=== PATIENT | male | born 1990 | race Caucasian/White ===

== ENCOUNTER 2022-01-23 08:58 | Emergency (ER) | payer MEDICARE, OTHER ==
[~2022-01-23] VITALS: Ht 180.3 cm; Wt 77.3 kg
[~2022-01-23 08:58] MED LIST: ACET500C4 PO
[2022-01-23] MEDS ORDERED: DEXT10TA4 PO (09:20)
[2022-01-23 11:04] LABS: COVID AG,FIA SOURCE NASAL SWAB
[2022-01-23 12:35] VITALS: BP 116/78
== END 2022-01-23 13:13 | disposition home or self-care (01) ==
LOC: EMS 09:02
DX: J06.9 Acute upper respiratory infection, unspecified (principal); F17.210 Nicotine dependence, cigarettes, uncomplicated; F12.90 Cannabis use, unspecified, uncomplicated; F15.90 Other stimulant use, unspecified, uncomplicated; F41.9 Anxiety disorder, unspecified; Z20.822 Contact with and (suspected) exposure to COVID-19; Z91.013 Allergy to seafood
CPT/HCPCS: 99283